=== PATIENT | male | born 2000 | race Two or more races ===

== ENCOUNTER 2021-08-26 06:11 | Inpatient (IN) | payer BC, OTHER ==
[~2021-08-26] VITALS: Ht 185.4 cm; Wt 67.9 kg
[2021-08-26 06:39] LABS: Basophils # (auto) 0 10 ^3/uL (0-0.2); Basophils % (auto) 0.5 % (0.0-2.0); Eosinophils # (auto) 0.3 10 ^3/uL (0-0.8); Eosinophils % (auto) 4.7 % (0.0-7.0); Hematocrit 48.5 % (41.0-53.0); Hemoglobin 16.8 g/dL (13.5-17.5); Lymphocytes # (auto) 1.2 10 ^3/uL (0.4-5.4); Mean Corpuscular Hemoglobin 30.5 pg (28.0-32.0); Mean Corpuscular Hgb Conc. 34.7 g/dL (32.0-36.0); Mean Corpuscular Volume 87.9 fL (80.0-100.0); Monocytes # (auto) 0.9 10 ^3/uL (0-1.3); Monocytes % (auto) 17.4 % (0.0-12.0); Neutrophils % (auto) 55.4 % (37.0-80.0); Red Blood Cells 5.52 10^6/uL (4.5-5.90); Red Cell Distribution Width 13.6 % (11.8-14.3); White Blood Cell 5.4 10^3/uL (4.4-10.8)
[2021-08-26 07:10] LABS: Albumin 3.7 g/dL (3.4-5.0); BUN/Creatinine Ratio 10.9; Calcium 8.8 mg/dL (8.5-10.1); Potassium 3.7 mmol/L (3.5-5.1)
[2021-08-26 07:15] LABS: Bilirubin, Total 0.4 mg/dL (0.2-1.0); Total Protein 7.2 g/dL (6.4-8.2)
[2021-08-26] MEDS ORDERED: ASPirin 81 mg TAB PO ONE ×2 (07:30→09:30)
[2021-08-26] MEDS ORDERED: SODIUM CHLORIDE 0.9% 1,000 ML IV ONE (08:00)
[2021-08-26] MEDS ORDERED: MORPHINE SULFATE INJECTION 2 MG/ML SYRG IV ONE (08:00)
[2021-08-26] MEDS ORDERED: ONDANSETRON HCL 4 MG/2 ML VIAL IV ONE (08:00)
[2021-08-26 08:04] LABS: Alcohol, Urine < 3.0 mg/dL (0-10); Barbiturate Scree,Urine NEGATIVE (NEGATIVE); Benzodiazephine Screen, Urine NEGATIVE (NEGATIVE); Cannabinoid Screen, Urine POSITIVE (NEGATIVE); Cocaine Screen, Urine NEGATIVE (NEGATIVE); Opiate Scree,Urine NEGATIVE (NEGATIVE); Phencyclidine Screen, Urine NEGATIVE (NEGATIVE)
[2021-08-26 08:10] LABS: Amphetamine Screen, Urine NEGATIVE (NEGATIVE)
[2021-08-26] MEDS ORDERED: ENOXAPARIN SOD 100 MG/1 ML SYRINGE SC ONE (09:30)
[2021-08-26] MEDS ORDERED: NITROGLYCERIN 0.4 MG SL TAB SL PRN ×3 (11:30→18:00)
[2021-08-26] MEDS ORDERED: MORPHINE SULFATE INJECTION 2 MG/ML SYRG IV PRN ×4 (11:30→18:00)
[2021-08-26 12:26] LABS: Hematocrit 44.8 % (41.0-53.0); Hemoglobin 15.3 g/dL (13.5-17.5); Mean Corpuscular Hemoglobin 30.3 pg (28.0-32.0); Mean Corpuscular Hgb Conc. 34.2 g/dL (32.0-36.0); Mean Corpuscular Volume 88.6 fL (80.0-100.0); Red Blood Cells 5.06 10^6/uL (4.5-5.90); Red Cell Distribution Width 13.5 % (11.8-14.3); White Blood Cell 4.6 10^3/uL (4.4-10.8)
[2021-08-26 12:38] LABS: Basophils % (manual) 0 (0.0-2.0); Blast Cells 0; Metamyelocytes % 0; Myelocytes % 0; Promyelocytes % 0; Reactive Lymphocytes 0
[2021-08-26 12:46] LABS: INR 1.1 (0.9-1.15); Partial Thromboplastin Time 42.6 sec (23.6-33.0)
[2021-08-26] MEDS ORDERED: IOHEXOL 350 MG/ML 100ML IJ ONE (13:10)
[2021-08-26 13:37] LABS: Band Neutrophils % (manual) 2; Eosinophils % (manual) 8 (0-7); Lymphocytes % (manual) 30 (10.0-50.0); Monocytes % (manual) 18 (0-12)
[2021-08-26] MEDS ORDERED: LORazepam 0.5 MG TAB PO PRN (15:15)
[2021-08-26] MEDS ORDERED: DOCUSATE SOD 100 MG CAP PO PRN (15:15)
[2021-08-26] MEDS ORDERED: METOPROLOL SUCCINATE XL 50 MG TAB PO ONE (15:15)
[2021-08-26] MEDS ORDERED: ACETAMINOPHEN 325 MG TAB PO PRN (15:15)
[2021-08-26] MEDS ORDERED: FUROSEMIDE 20 MG/2 ML VIAL IV ONE (15:15)
[2021-08-26] MEDS ORDERED: SODIUM CHLORIDE 0.9% 500 ML IV ONE (15:15)
[2021-08-26] MEDS ORDERED: ONDANSETRON HCL 4 MG/2 ML VIAL IV PRN (15:15)
[2021-08-26] MEDS ORDERED: ALUM & MAG HYDROX-SIMETH LIQ(MAALOX) 30 ML PO PRN (15:15)
[2021-08-26] MEDS ORDERED: ANGIOMAX 250 MG VIAL IV ONE (15:24)
[2021-08-26] MEDS ORDERED: fentaNYL CITRATE 100 MCG/2 ML VL ONE (15:24)
[2021-08-26] MEDS ORDERED: MIDAZOLAM HCL 2MG/2ML 2ml VIAL (1mg/ml) ONE (15:24)
[2021-08-26] MEDS ORDERED: SODIUM CHL 0.9% 0 ML ONE (15:25)
[2021-08-26] MEDS ORDERED: HEPARIN SODIUM (PORCINE) 5000 UNITS/ML 1ML VIAL ONE (15:25)
[2021-08-26] MEDS ORDERED: VERAPAMIL 2.5MG/ML INJ 2ML VIAL IV ONE (15:25)
[2021-08-26] MEDS ORDERED: LISINOPRIL 5 MG TAB PO ONE (15:30)
[2021-08-26] MEDS ORDERED: HEPARIN IN NS 1000Units/500mL 1,500 ML ONE (15:41)
[2021-08-26] MEDS ORDERED: LIDOCAINE 2%HCL (LOCAL ANESTH.) INJ 20ML MDV ONE (15:41)
[2021-08-26] MEDS: SODIUM CHLORIDE 0.9% 1,000 ML IV SCH (15:45)
[2021-08-26] MEDS ORDERED: ATORVASTATIN 20 MG TAB PO ONE (15:45)
[2021-08-26] MEDS ORDERED: IODIXANOL 320MG/ML 100ML BTL IV ONE (15:46)
[2021-08-26 16:21] LABS: INR 1.08 (0.9-1.15)
[2021-08-26 19:00] VITALS: BP 106/67
[2021-08-26] MEDS ORDERED: HYDR25CA PO (19:14)
[2021-08-26] MEDS ORDERED: CITA10TA8 PO (19:14)
[2021-08-26 20:19] LABS: Urine Bacteria NONE SEEN /hpf (None Seen); Urine Blood Negative /uL (Negative); Urine Mucus FEW (None Seen); Urine Specific Gravity 1.026 (1.001-1.035); Urine WBC 1 /hpf (0 - 3)
[2021-08-26] MEDS: FAMOTIDINE (10MG/ML) 2ML VL IV SCH (21:20)
[2021-08-26] MEDS: HYDROcodone-ACET 5/325MG TAB PO PRN ×2 (21:50→22:11)
[2021-08-26 22:00] VITALS: BP 111/68
[2021-08-26] MEDS ORDERED: HEPARIN DRIP/D5W 100UNITS/ML 250 ML IV SCH (22:00)
[2021-08-26] MEDS ORDERED: HEPARIN SODIUM (PORCINE) 5000 UNITS/ML 1ML VIAL IV ONE (22:00)
[2021-08-27 05:00] VITALS: BP 101/64
[2021-08-27 07:02] LABS: Basophils # (auto) 0 10 ^3/uL (0-0.2); Basophils % (auto) 0.7 % (0.0-2.0); Eosinophils # (auto) 0.3 10 ^3/uL (0-0.8); Eosinophils % (auto) 7.3 % (0.0-7.0); Hematocrit 43.9 % (41.0-53.0); Lymphocytes # (auto) 1.6 10 ^3/uL (0.4-5.4); Lymphocytes % (auto) 39.7 % (10.0-50.0); Mean Corpuscular Hemoglobin 30.1 pg (28.0-32.0); Mean Corpuscular Hgb Conc. 34.1 g/dL (32.0-36.0); Mean Corpuscular Volume 88.3 fL (80.0-100.0); Monocytes # (auto) 0.7 10 ^3/uL (0-1.3); Monocytes % (auto) 16.5 % (0.0-12.0); Neutrophils # (auto) 1.5 10 ^3/uL (1.6-8.6); Neutrophils % (auto) 35.8 % (37.0-80.0); Nucleated Red Blood Cells % 0.1 %; Red Blood Cells 4.97 10^6/uL (4.5-5.90); Red Cell Distribution Width 13.5 % (11.8-14.3); White Blood Cell 4.1 10^3/uL (4.4-10.8)
[2021-08-27 07:03] LABS: INR 1.02 (0.9-1.15); Partial Thromboplastin Time 34.5 sec (23.6-33.0)
[2021-08-27 07:09] LABS: Albumin 3.4 g/dL (3.4-5.0); Calcium 9.1 mg/dL (8.5-10.1); Magnesium 2.4 mg/dL (1.6-2.6); Potassium 4.6 mmol/L (3.5-5.1)
[2021-08-27 07:14] LABS: BUN/Creatinine Ratio 12.9; Bilirubin, Total 0.4 mg/dL (0.2-1.0); Phosphorus 5.2 mg/dL (2.5-4.90); Total Protein 6.3 g/dL (6.4-8.2); Uric Acid 5.8 mg/dL (3.5-7.2)
[2021-08-27] MEDS: SODIUM CHLORIDE 0.9% 1,000 ML IV SCH (08:15)
[2021-08-27 09:00] VITALS: BP 102/61
[2021-08-27] MEDS: ASPirin 81 mg TAB PO SCH (09:44)
[2021-08-27] MEDS: POTASSIUM CHL 20 Meq TABLET PO SCH (09:44)
[2021-08-27] MEDS: FAMOTIDINE (10MG/ML) 2ML VL IV SCH (09:44)
[2021-08-27] MEDS ORDERED: FUROSEMIDE 20 MG/2 ML VIAL IV SCH (10:00)
[2021-08-27] MEDS ORDERED: METOPROLOL SUCCINATE XL 50 MG TAB PO SCH (10:00)
[2021-08-27] MEDS ORDERED: LISINOPRIL 5 MG TAB PO SCH (10:00)
[2021-08-27 11:53] VITALS: BP 100/56
[2021-08-27] MEDS: COLCHICINE 0.6 MG CAP PO SCH (12:27)
[2021-08-27] MEDS: HYDROcodone-ACET 5/325MG TAB PO PRN (14:53)
[2021-08-27 22:00] VITALS: BP 98/54
[2021-08-27] MEDS ORDERED: ATORVASTATIN 20 MG TAB PO SCH (22:00)
[2021-08-28 05:00] VITALS: BP 99/53
[2021-08-28 07:02] LABS: Calcium 8.6 mg/dL (8.5-10.1); Potassium 4.1 mmol/L (3.5-5.1)
[2021-08-28 07:09] LABS: BUN/Creatinine Ratio 16.3
[2021-08-28 09:29] VITALS: BP 100/54
[2021-08-28] MEDS: POTASSIUM CHL 20 Meq TABLET PO SCH (09:51)
[2021-08-28] MEDS: ASPirin 81 mg TAB PO SCH (09:51)
[2021-08-28] MEDS: COLCHICINE 0.6 MG CAP PO SCH (09:52)
[2021-08-28 13:00] VITALS: BP 107/50
[2021-08-28] MEDS ORDERED: methylPREDNISolone SOD SUCC 125 MG/2 ML VL IV ONE (17:30)
[2021-08-28] MEDS ORDERED: LISI2.5T47 PO (17:51)
[2021-08-28] MEDS ORDERED: METO25TA93 PO (17:51)
[2021-08-28] MEDS ORDERED: ATO40T PO (17:51)
[2021-08-28] MEDS ORDERED: PRED1PAK8 PO (17:51)
[2021-08-28] MEDS ORDERED: POTA10TA51 PO (17:51)
[2021-08-28] MEDS ORDERED: ASPI81CH59 PO (17:51)
[2021-08-28] MEDS ORDERED: PANT40TA2 PO (17:51)
[2021-08-28] MEDS ORDERED: FURO1TAB33 PO (17:51)
[2021-08-28] MEDS ORDERED: HYDR1CAP27 PO (17:58)
[2021-08-28 18:17] VITALS: BP 107/50
== END 2021-08-28 21:28 | disposition home or self-care (01) | DRG 282 ==
LOC: ER 06:11 → TELE 11:28 → TELE-CENTR 18:23
PROVIDERS: ADMIT Hospitalist; ATTEND Hospitalist
PROC: 4A023N7 Measurement of Cardiac Sampling and Pressure, Left Heart, Percutaneous Approach (ICD-10-PCS; principal; 2021-08-26)
PROC: B211YZZ Fluoroscopy of Multiple Coronary Arteries using Other Contrast (ICD-10-PCS; 2021-08-26)
PROC: B215YZZ Fluoroscopy of Left Heart using Other Contrast (ICD-10-PCS; 2021-08-26)
DX: I21.4 Non-ST elevation (NSTEMI) myocardial infarction (principal); I44.7 Left bundle-branch block, unspecified; F43.0 Acute stress reaction; F41.9 Anxiety disorder, unspecified; Z20.822 Contact with and (suspected) exposure to COVID-19; F32.9 Major depressive disorder, single episode, unspecified; F17.210 Nicotine dependence, cigarettes, uncomplicated; I51.4 Myocarditis, unspecified; D72.819 Decreased white blood cell count, unspecified; D72.821 Monocytosis (symptomatic)
CPT/HCPCS: 36415; 71046; 71275; 80048; 80053; 80307; 81001; 82306; 82550; 82553; 83036; 83735; 83880; 84100; 84443; 84484; 84550; 85007; 85025; 85027; 85379; 85610; 85730; 87040; 87086; 87426; 93005; 93306; 96361; 96374; 99152; 99291; G0378; J2250; J3490; Q9967